=== PATIENT | female | born 1985 | race Caucasian/White ===

== ENCOUNTER 2017-08-14 02:46 | Emergency (ER) | payer SELFPAY ==
[~2017-08-14] VITALS: Ht 167.6 cm; Wt 69.9 kg
[~2017-08-14 02:46] MED LIST: Motrin PO; Ortho Cyclen 28 PO; PAXIL CR12.5 MG PO; XANAX XR0.5 M1 PO
[2017-08-14 02:49] VITALS: BP 137/95
[2017-08-14] MEDS ORDERED: PEN-VEE K,VEET500 MG PO (03:06)
[2017-08-14] MEDS ORDERED: NAPROXEN500 MG PO (03:06)
[2017-08-14] MEDS ORDERED: NORCO 5/3251 TABLET PO (03:06)
== END 2017-08-14 03:26 | disposition home or self-care (01) ==
LOC: EME 02:46 → EXP 02:46
DX: K02.9 Dental caries, unspecified (principal); K08.89 Other specified disorders of teeth and supporting structures; F17.200 Nicotine dependence, unspecified, uncomplicated
CPT/HCPCS: 99281; 99283

== ENCOUNTER 2017-08-31 20:37 | Emergency (ER) | payer SELFPAY ==
[~2017-08-31] VITALS: Ht 167.6 cm; Wt 71.0 kg
[~2017-08-31 20:37] MED LIST changes: +NAPROXEN500 MG PO; +NORCO 5/3251 TABLET PO; +PEN-VEE K,VEET500 MG PO
[2017-08-31] MEDS ORDERED: CLEOCIN300 MG PO (21:16)
[2017-08-31 21:25] VITALS: BP 125/88
== END 2017-08-31 21:29 | disposition home or self-care (01) ==
LOC: EME 20:37
DX: K08.89 Other specified disorders of teeth and supporting structures (principal)
CPT/HCPCS: 99281; 99283

== ENCOUNTER 2018-03-13 00:30 | Emergency (ER) | payer SELFPAY ==
[~2018-03-13] VITALS: Ht 167.6 cm; Wt 66.3 kg
[~2018-03-13 00:30] MED LIST changes: +CLEOCIN300 MG PO
[2018-03-13] MEDS ORDERED: INDOCIN50 MG PO (01:12)
[2018-03-13] MEDS ORDERED: AUGMENTIN875 MG PO (01:12)
[2018-03-13 01:34] VITALS: BP 130/90
== END 2018-03-13 01:34 | disposition home or self-care (01) ==
LOC: EME 00:30
DX: K04.7 Periapical abscess without sinus (principal); K02.9 Dental caries, unspecified
CPT/HCPCS: 99281; 99283

== ENCOUNTER 2018-05-23 15:58 | Day surgery (SDC) | payer OTHER ==
[~2018-05-23] VITALS: Ht 167.6 cm; Wt 54.0 kg
[~2018-05-23 15:58] MED LIST changes: +AUGMENTIN875 MG PO; +INDOCIN50 MG PO
[2018-05-23 16:24] LABS: BASOPHIL (%) 0.5 % (0-1); EOSINOPHIL (%) 0.4 % (0-5); HEMATOCRIT 30.2 % (36.0-46.0); HEMOGLOBIN 10.5 G/DL (11.9-15.5); IMMATURE GRANULOCYTE (%) 0.2 % (0.0-0.7); LYMPHOCYTE (%) 30.1 % (15-42); LYMPHOCYTE COUNT 1.7 K/uL (1.0-2.8); MCH 32.8 PG (29.0-34.0); MCHC 34.8 G/DL (30.0-36.0); MCV 94.4 FL (83-99); MONOCYTE COUNT 0.2 K/uL (0-0.8); NEUTROPHIL (%) 64.8 % (45-76); NEUTROPHIL COUNT 3.7 K/uL (1.8-6.4); PLATELET COUNT 254 K/uL (156-360); RBC DIS.WIDTH-CV 13.4 % (11.8-14.6); RBC DIS.WIDTH-SD 45.9 % (39-53); WHITE BLOOD COUNT 5.7 K/uL (4.1-10.2)
[2018-05-23] MEDS ORDERED: OXYCODONE HCL E30 MG PO (16:26)
[2018-05-23] MEDS ORDERED: KADIAN30 MG PO (16:27)
[2018-05-23] MEDS ORDERED: FLEXERIL10 MG PO (16:28)
[2018-05-23] MEDS ORDERED: LYRICA75 MG PO (16:28)
[2018-05-23 16:53] VITALS: BP 125/78
[2018-05-23] MEDS ORDERED: IBUPROFEN800 MG PO (18:45)
[2018-05-23 19:45] VITALS: BP 135/75
[2018-05-23 20:25] VITALS: BP 131/87
== END 2018-05-23 20:35 | disposition home or self-care (01) ==
LOC: SDC 15:58
PROVIDERS: Obstetrics & Gynecology
DX: O03.4 Incomplete spontaneous abortion without complication (principal); K66.1 Hemoperitoneum; N80.9 Endometriosis, unspecified; F17.210 Nicotine dependence, cigarettes, uncomplicated
CPT/HCPCS: 84702; 85025; J0131; J1100; J1170; J2250; J2405; J2710; J3010; J7643

== ENCOUNTER 2018-06-05 00:35 | Emergency (ER) | payer OTHER ==
[~2018-06-05] VITALS: Ht 167.6 cm; Wt 63.0 kg
[~2018-06-05 00:35] MED LIST changes: +FLEXERIL10 MG PO; +IBUPROFEN800 MG PO; +KADIAN30 MG PO; +LYRICA75 MG PO; +OXYCODONE HCL E30 MG PO
[2018-06-05] MEDS ORDERED: NAPROSYN500 MG PO (01:06)
[2018-06-05] MEDS ORDERED: PEN-VEE K,VEET500 MG PO (01:06)
[2018-06-05 01:23] VITALS: BP 129/82
[2018-06-06] MEDS ORDERED: INDOCIN50 MG PO (07:23)
== END 2018-06-05 01:24 | disposition home or self-care (01) ==
LOC: EME 00:35
DX: K02.9 Dental caries, unspecified (principal)
CPT/HCPCS: 99281; 99283

== ENCOUNTER 2018-06-06 06:12 | Emergency (ER) | payer OTHER ==
[~2018-06-06] VITALS: Ht 167.6 cm; Wt 61.5 kg
[~2018-06-06 06:12] MED LIST changes: +NAPROSYN500 MG PO
[2018-06-06 06:15] VITALS: BP 152/97
[2018-06-06] MEDS ORDERED: INDOCIN50 MG PO (07:23)
== END 2018-06-06 07:44 | disposition home or self-care (01) ==
LOC: EME 06:12
PROC: 3E0T3BZ Introduction of Anesthetic Agent into Peripheral Nerves and Plexi, Percutaneous Approach (ICD-10-PCS; principal; 2018-06-06)
DX: K04.7 Periapical abscess without sinus (principal)
CPT/HCPCS: 99281; 99283

== ENCOUNTER 2018-06-07 02:02 | Emergency (ER) | payer OTHER ==
[~2018-06-07] VITALS: Ht 167.6 cm; Wt 61.3 kg
[2018-06-07 03:29] VITALS: BP 152/84
== END 2018-06-07 03:31 | disposition home or self-care (01) ==
LOC: EXP 02:02 → EME 02:02 → EXP 03:31
PROC: 3E0T3BZ Introduction of Anesthetic Agent into Peripheral Nerves and Plexi, Percutaneous Approach (ICD-10-PCS; principal; 2018-06-07)
DX: K08.89 Other specified disorders of teeth and supporting structures (principal); K02.9 Dental caries, unspecified
CPT/HCPCS: 99281; 99284